=== PATIENT | male | born 1960 | race African-American/Black ===

== ENCOUNTER 2017-06-18 15:37 | Inpatient (IN) ==
[2017-06-18] MEDS ORDERED: ACETAMINOPHEN 325 MG TABLET PO ONE (17:15)
[2017-06-18] MEDS ORDERED: ACETAMINOPHEN 325 MG TABLET ONE (17:20)
[2017-06-18] MEDS ORDERED: cefTRIAXone 1,000 MG VIAL IM STA (17:23)
[2017-06-18] MEDS ORDERED: DEXAMETHASONE 4 MG/1 ML VIAL IM STA (17:23)
[2017-06-18] MEDS ORDERED: DEXAMETHASONE 10 MG/1 ML VIAL ONE (17:26)
[2017-06-18] MEDS ORDERED: cefTRIAXone 1,000 MG VIAL ONE ×2 (17:26→17:31)
[2017-06-18] MEDS ORDERED: SODIUM CHLORIDE 0.9% 1,000 ML IV STA (17:45)
[2017-06-18 18:08] LABS: Basophils % 0.6 % (0.0-0.8); Hematocrit 42.3 VOL% (42.0-52.0); Hemoglobin 13.7 GM/DL (14.0-18.0); Immature Granulocytes % 0.6 %; Immature Granulocytes Absolute 0.03 #; Lymphocytes # 0.8 10*3/uL (1.4-4.0); Lymphocytes % 16.2 % (21.2-54.2); Mean Corpuscular HGB Conc 32.4 GM/DL (32-36); Mean Corpuscular Hemoglobin 28 PG (27-34); Mean Corpuscular Volume 85.5 FL (87-102); Mean Platelet Volume 10.1 FL (9.6-12.0); Monocytes # 0.7 10*3/uL (0.11-0.8); Monocytes % 14.5 % (1.7-12.7); Neutrophils # 3.2 10*3/uL (1.4-7.4); Neutrophils % 68.1 % (38.7-73.9); Platelet Count 282 T/CUMM (130-400); Red Blood Count 4.95 MC/CUMM (3.8-5.5); Red Cell Distribution Width 14.3 % (9.3-17.3); White Blood Count 4.8 T/CUMM (4-12)
[2017-06-18 18:17] LABS: INR 1.1; PT Patient Result 11.5 SECS
[2017-06-18 18:27] LABS: Alanine Aminotransferase 24 U/L (16-61); Albumin 3.8 G/DL (3.4-5.0); Alkaline Phosphatase 75 U/L (45-117); Aspartate Amino Transferase 20 U/L (0-37); Bilirubin,Total < 0.39 MG/DL (0.2-1.0); Blood Urea Nitrogen 15 MG/DL (7-18); Calcium 8.5 MG/DL (8.5-10.1); Glucose 80 MG/DL (74-106); Osmolality,Calculated 274.7 MOS/KG (273-304); Potassium 4.2 MMOL/L (3.5-5.1); Sodium 138 MMOL/L (136-145); Total Protein 7.8 G/DL (6.4-8.3); Troponin I Only < 0.015 NG/ML (0.00-0.045)
[2017-06-18 18:51] LABS: Magnesium 2.1 MG/DL (1.8-2.4)
[2017-06-18 19:41] LABS: Lactic Acid 1.4 MMOL/L (0.4-2.0)
[2017-06-18] MEDS ORDERED: ACETAMINOPHEN 325 MG TABLET PO PRN (20:11)
[2017-06-18] MEDS ORDERED: guaiFENesin/DM ER 600-30 MG TABLET PO PRN (20:11)
[2017-06-18] MEDS ORDERED: NICOTINE 21 MG/24 HR PATCH TRANSDERM PRN (20:11)
[2017-06-18] MEDS ORDERED: ONDANSETRON 4 MG/2 ML VIAL IV PRN (20:11)
[2017-06-18] MEDS ORDERED: AZITHROMYCIN INJ 500 MG in SODIUM CHLORIDE 0.9% 250 ML IV ONE (20:14)
[2017-06-18] MEDS: OSELTAMIVIR 75 MG CAPSULE PO SCH (23:04)
[2017-06-19] MEDS ORDERED: methylPREDNISolone SOD SUC 40 MG/1 ML VIAL ONE ×2 (00:57→08:38)
[2017-06-19] MEDS: methylPREDNISolone SOD SUC 40 MG/1 ML VIAL IV SCH ×4 (01:17→23:39)
[2017-06-19] MEDS: SODIUM CHLORIDE 0.9% 1,000 ML IV SCH ×4 (01:20→21:55)
[2017-06-19 01:53] LABS: Apearance,Urine Slightly Hazy (Clear); Bilirubin,Urine Negative (Negative); Blood, Urine Negative (Negative); Glucose,Urine (UA) Negative (Negative); Hyaline Casts,Urine 1 /LPF (0-3); Ketones,Urine Negative (Negative); Mucus,Urine Few /LPF (Occasional); Nitrite,Urine Negative (Negative); Protein,Urine 30 MG/DL; RBC,Urine 3 /HPF (0-4); Squamous Epithelial Cell,Urine Occasional /HPF (0-10); Urine Color Yellow (Yellow); WBC,Urine 1 /HPF (0-6)
[2017-06-19 01:59] LABS: Barbiturates Screen,Urine Negative (Negative); Benzodiazepines Screen,Urine Negative (Negative); Cannabinoid Screen,Urine Positive (Negative); Opiate Screen,Urine Negative (Negative); Phencyclidine Screen,Urine Negative (Negative)
[2017-06-19] MEDS ORDERED: ACETAMINOPHEN 325 MG TABLET ONE (05:33)
[2017-06-19 07:25] LABS: Basophils % 0.7 % (0.0-0.8); Eosinophils % 0.2 % (0.00-10.9); Hemoglobin 12.4 GM/DL (14.0-18.0); Immature Granulocytes % 0.3 %; Immature Granulocytes Absolute 0.02 #; Lymphocytes # 0.4 10*3/uL (1.4-4.0); Lymphocytes % 6.8 % (21.2-54.2); Mean Corpuscular HGB Conc 32.6 GM/DL (32-36); Mean Corpuscular Hemoglobin 28 PG (27-34); Mean Platelet Volume 11.4 FL (9.6-12.0); Monocytes # 0.5 10*3/uL (0.11-0.8); Monocytes % 7.5 % (1.7-12.7); Neutrophils # 5.1 10*3/uL (1.4-7.4); Neutrophils % 84.5 % (38.7-73.9); Platelet Count 225 T/CUMM (130-400); Red Blood Count 4.47 MC/CUMM (3.8-5.5); Red Cell Distribution Width 14.3 % (9.3-17.3)
[2017-06-19 08:16] LABS: Alanine Aminotransferase 27 U/L (16-61); Albumin 3.2 G/DL (3.4-5.0); Alkaline Phosphatase 68 U/L (45-117); Aspartate Amino Transferase 35 U/L (0-37); Bilirubin,Total < 0.39 MG/DL (0.2-1.0); Blood Urea Nitrogen 16 MG/DL (7-18); Calcium 8.4 MG/DL (8.5-10.1); Cholesterol 209 MG/DL (50-200); Glucose 108 MG/DL (74-106); HDL Cholesterol 51 MG/DL (40-60); Magnesium 1.9 MG/DL (1.8-2.4); Osmolality,Calculated 276.7 MOS/KG (273-304); Potassium 4.4 MMOL/L (3.5-5.1); Sodium 138 MMOL/L (136-145); Thyroid Stimulating Hormone 0.068 uIU/ml (0.358-3.74); Triglycerides 85 MG/DL (2-150)
[2017-06-19 08:17] LABS: Hypochromasia 1+
[2017-06-19] MEDS ORDERED: PANTOPRAZOLE 40 MG TABLET PO ONE (09:01)
[2017-06-19] MEDS ORDERED: OSELTAMIVIR 75 MG CAPSULE ONE (09:01)
[2017-06-19] MEDS ORDERED: AZITHROMYCIN 250 MG TABLET ONE (09:01)
[2017-06-19] MEDS: PANTOPRAZOLE 40 MG TABLET PO SCH (09:03)
[2017-06-19] MEDS: AZITHROMYCIN 250 MG TABLET PO SCH (09:03)
[2017-06-19] MEDS: OSELTAMIVIR 75 MG CAPSULE PO SCH ×2 (09:03→20:25)
[2017-06-19] MEDS: LEVOFLOXACIN 750 MG TABLET PO SCH (10:25)
[2017-06-19] MEDS: FLUTICASONE 50 MCG NASAL SPRAY 16 GM BOTTLE BOTH NARES SCH ×2 (10:25→20:26)
[2017-06-20] MEDS: SODIUM CHLORIDE 0.9% 1,000 ML IV SCH (05:17)
[2017-06-20] MEDS: OSELTAMIVIR 75 MG CAPSULE PO SCH (09:08)
[2017-06-20] MEDS: PANTOPRAZOLE 40 MG TABLET PO SCH (09:08)
[2017-06-20] MEDS: LEVOFLOXACIN 750 MG TABLET PO SCH (09:08)
[2017-06-20] MEDS: AZITHROMYCIN 250 MG TABLET PO SCH (09:08)
[2017-06-20] MEDS: methylPREDNISolone SOD SUC 40 MG/1 ML VIAL IV SCH (09:09)
[2017-06-20] MEDS: FLUTICASONE 50 MCG NASAL SPRAY 16 GM BOTTLE BOTH NARES SCH (09:13)
[2017-06-20 09:26] VITALS: BP 118/77
== END 2017-06-20 12:00 | disposition home or self-care (01) | DRG 202 ==
LOC: N.ED 15:37 → N.EDINP 06-19 09:08 → N.2E 06-19 09:37
PROVIDERS: ADMIT Family Medicine; ATTEND Family Medicine